=== PATIENT | male | born 2000 | race Caucasian/White ===

== ENCOUNTER → 2018-09-24 | Outpatient (CLI) | payer BC | LOC: LAB 11:21 | PROVIDERS: ATTEND Surgery | DX: L72.0 Epidermal cyst (principal) | CPT/HCPCS: 88305 ==

== ENCOUNTER 2019-01-21 12:24 | Emergency (ER) | payer OTHER, BC ==
[2019-01-21 12:28] VITALS: BP 115/82
--- NOTE | 2019-01-21 12:32 | ER Report ---
History and Physical Time Seen By MD: 12:30 Hx. of Stated Complaint: CUT RIGHT THUMB ON [employer] AT WORK HPI/ROS CHIEF COMPLAINT: Right thumb laceration HISTORY OF PRESENT ILLNESS: Patient is a 18-year-old male who presents to ED with complaint of the right thumb laceration that occurred about 30 minutes ago. 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 He states that he is up-to-date with his tetanus vaccination. Patient denies any pain. He states that he was just unable to get this to stop bleeding. REVIEW OF SYSTEMS: Respiratory: No cough, no dyspnea. Cardiovascular: No chest pain, no palpitations. Gastrointestinal: No vomiting, no abdominal pain. Musculoskeletal: No back pain. Patient has full range of motion of the right thumb with no complaints. Skin: See history of present illness. Allergies: Coded Allergies: nickel (Verified Adverse Reaction, Mild, 01/21/19) Home Meds No Active Prescriptions or Reported Meds Reviewed Nurses Notes: Yes Old Medical Records Reviewed: Yes Smoking Status: Never Smoker Constitutional Vital Sign - Last 24 Hours 01/21/19 12:28 Temp 98.3 Pulse 76 Resp 18 B/P (MAP) 115/82 Pulse Ox 92 Physical Exam General Appearance: The patient is alert, has no immediate need for airway protection and no signs of toxicity. Patient appears to be in no acute distress. Respiratory: There are no retractions, lungs are clear to auscultation. Cardiovascular: Regular rate and rhythm. Skin: There is a small portion of the dermal pad on the right thumb. This is actively bleeding. Radial pulses 2+ with normal capillary refill. Normal sensation. Full range of motion right thumb without any pain. Musculoskeletal: Neck is supple non tender. Extremities are nontender, nonswollen and have full range of motion. Medical Decision Making ED Course/Re-evaluation ED Course Will first clean right thumb thoroughly. 01/21/2019 1:14:18 pm - the patient's consent, applied Dermabond to the 1 cm avulsion of the right thumb until hemostasis achieved. Patient tolerated procedure well. Decision to Disposition Date: Jan 21, 2019 Decision to Disposition Time: 13:26 Depart Departure Latest Vital Signs Vital Signs Date Time Temp Pulse Resp B/P (MAP) Pulse Ox O2 Delivery O2 Flow Rate FiO2 01/21/19 12:28 98.3 76 18 115/82 92 Impression: Primary Impression: Avulsion of skin of right thumb Condition: Improved Disposition: HOME OR SELF-CARE Referrals: ZOLTAN AREVALO MD (PCP) New Scripts No Active Prescriptions or Reported Meds Patient Instructions: Finger Laceration (ED) Additional Instructions: Monitor for signs and symptoms of infection including redness, swelling, discharge, fever. If having any worsening or concerning symptoms may return to the emergency department. Follow-up with your primary care provider in the next 3-4 days. Problem Qualifiers Primary Impression: Avulsion of skin of right thumb Encounter type: initial encounter Qualified Codes: S61.001A - Unspecified open wound of right thumb without damage to nail, initial encounter CHANDNI CLARK PA-C Jan 21, 2019 12:32
== END 2019-01-21 13:37 | disposition home or self-care (01) ==
LOC: ER 12:41
DX: S61.001A Unspecified open wound of right thumb without damage to nail, initial encounter (principal)